=== PATIENT | female | born 1945 | race Caucasian/White ===

== ENCOUNTER 2019-02-10 16:30 | Inpatient (IN) | payer OTHER | END 2019-02-14 13:57 | disposition home or self-care (01) | LOC: JER 16:30 → J4W 02-11 20:15 → JERBED 20:29 ==

== ENCOUNTER 2019-02-22 00:21 | Inpatient (IN) | payer OTHER | END 2019-02-24 13:43 | disposition home or self-care (01) | LOC: JER 00:21 → JERBED 02:20 → J7W 17:01 ==

== ENCOUNTER 2019-04-19 09:05 | Day surgery (SDC) | payer OTHER ==
[2019-04-16 14:47] VITALS: BMI 33.0
[2019-04-19 09:47] VITALS: TEMP 97.8
[2019-04-19 14:44] VITALS: BP 124/84; PULSE 101
--- NOTE | 2019-04-21 20:11 | PATH ---
Surgical Pathology Report Patient Name: MICHAEL MORSE [facility]. Rec. #: [id number] /Age/Gender: 1945 (Age: 73) / F Account: [id number] Location: [facility]OS[facility] Taken: 04/19/2019 Received: 04/19/2019 Reported: 04/21/2019 Physicians: Sangita Page M.D. Specimen(s) Received A: DUODENUM POLYP B: SECOND PORTION OF DUODENUM AND DUODENAL BULB C: ANTRUM D: POLYP SIGMOID Clinical History Abnormal CT scan of duodenum, rule out duodenal neoplasm, colon cancer screening Postoperative diagnosis: Duodenal polyp, hiatal hernia, sigmoid polyp Final Diagnosis A. 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 FEATURES DIAGNOSTIC OF LIPOMA ARE NOT IDENTIFIED, SEE COMMENT. B. DUODENUM, SECOND PORTION AND DUODENAL BULB, BIOPSY: DUODENAL MUCOSA WITH MILD ACUTE AND CHRONIC DUODENITIS. C. STOMACH, ANTRUM, BIOPSY: GASTRIC ANTRAL MUCOSA WITH SEVERE CHRONIC ACTIVE GASTRITIS. IMMUNOHISTOCHEMICAL STAIN FOR H. PYLORI IS POSITIVE (MANY). D. SIGMOID COLON, POLYP, BIOPSY: TUBULAR ADENOMA. Comment: Suggest clinical and endoscopic correlation. Electronically Signed Veronica Frey M.D. Gross Description A. Received in formalin, labeled "biopsy polyp duodenum" is a mabry, irregular portion of soft tissue measuring 0.4 cm. in greatest dimension. The specimen is submitted in toto in one cassette. B. Received in formalin, labeled "biopsy second portion of duodenum and duodenal bulb" are 4 mabry, irregular portions of soft tissue ranging from 0.1-0.5 cm. in greatest dimension. The specimens are submitted in toto in one cassette. C. Received in formalin, labeled "biopsy antrum" are 2 mabry, irregular portions of soft tissue measuring 0.3 and 0.5 cm. in greatest dimension. The specimens are submitted in toto in one cassette. D. Received in formalin, labeled "sigmoid polyp" is a mabry, irregular portion of soft tissue measuring 0.4 cm. in greatest dimension. The specimen is submitted in toto in one cassette. 04/19/2019 saudi04/19/2019
== END 2019-04-19 11:50 | disposition home or self-care (01) ==
LOC: JASU-ENDO 09:05
PROVIDERS: ATTEND Internal Medicine Gastroenterology
PROC: 0DB98ZX Excision of Duodenum, Via Natural or Artificial Opening Endoscopic, Diagnostic (ICD-10-PCS; 2019-04-19)
PROC: 0DB68ZX Excision of Stomach, Via Natural or Artificial Opening Endoscopic, Diagnostic (ICD-10-PCS; 2019-04-19)
PROC: 0DBN8ZX Excision of Sigmoid Colon, Via Natural or Artificial Opening Endoscopic, Diagnostic (ICD-10-PCS; principal; 2019-04-19 09:45)
DX: Z12.11 Encounter for screening for malignant neoplasm of colon (principal); D12.5 Benign neoplasm of sigmoid colon; K57.30 Diverticulosis of large intestine without perforation or abscess without bleeding; K64.8 Other hemorrhoids; K31.7 Polyp of stomach and duodenum; K44.9 Diaphragmatic hernia without obstruction or gangrene
CPT/HCPCS: 88305-TC; 88342-TC

== ENCOUNTER 2021-07-26 13:11 | Emergency (ER) | payer OTHER ==
[2021-07-26] MEDS ORDERED: ADENOSINE 6 MG/2 ML VIAL IVPUSH ONE (13:27)
[2021-07-26] MEDS ORDERED: SODIUM CHLORIDE 0.9% 500 ML INFUS.BAG IV ONE (13:28)
[2021-07-26 13:35] VITALS: BMI 32.0
[2021-07-26 13:47] LABS: BASO % 2.5 % (0-2.0); EOS % 1.3 % (0-4.5); HEMATOCRIT 39.8 % (32.4-45.2); HEMOGLOBIN 13.7 GM/dL (10.7-15.3); LYMPH % 22.2 % (8-40); MCH 33.2 pg (25.7-33.7); MCHC 34.4 g/dl (32.0-36.0); MEAN CELL VOLUME 96.5 fl (80-96); MEAN PLT VOLUME 7.1 fl (7.5-11.1); MONO % 9.9 % (3.8-10.2); NEUT % 64.1 % (42.8-82.8); PLATELET COUNT 208 10^3/uL (134-434); RBC 4.12 M/mm3 (3.60-5.2); WHITE BLOOD COUNT 4.7 K/mm3 (4.0-10.0)
[2021-07-26 13:54] LABS: PROTHROMBIN TIME (PATIENT) 53.7 SEC (9.7-13.0)
[2021-07-26 13:57] LABS: ACTIVATED PTT 45.2 SECONDS (25.2-36.5)
[2021-07-26 14:03] LABS: INR 4.72 (0.83-1.09)
[2021-07-26 14:10] LABS: CHLORIDE 107 mmol/L (98-107); SODIUM 140 mmol/L (136-145)
[2021-07-26 14:11] LABS: CALCIUM 9.3 mg/dL (8.5-10.1)
[2021-07-26 14:13] LABS: ANION GAP 6 MMOL/L (8-16); BLOOD UREA NITROGEN 24.1 mg/dL (7-18); CO2 27 mmol/L (21-32); GLUCOSE,RANDOM 105 mg/dL (74-106)
[2021-07-26 14:14] LABS: MAGNESIUM 2.2 mg/dL (1.8-2.4)
[2021-07-26 14:15] LABS: CREATININE 1.5 mg/dL (0.55-1.3); SGOT/AST 30 U/L (15-37); SGPT/ALT 30 U/L (13-61)
[2021-07-26 14:17] LABS: BILIRUBIN,TOTAL 0.5 mg/dL (0.2-1); TOT PROT 7.3 g/dl (6.4-8.2)
[2021-07-26 14:19] LABS: ALK PHOS 119 U/L (45-117)
[2021-07-26] MEDS ORDERED: METOPROLOL TARTRATE 5 MG/5 ML VIAL IVPUSH ONE (14:26)
[2021-07-26] MEDS ORDERED: metoPROLOL SUCCINATE 25 MG TAB.SR.24H (FP) PO ONE (14:26)
[2021-07-26] MEDS ORDERED: metoPROLOL SUCCINATE 25 MG TAB.SR.24H (FP) ONE (14:31)
[2021-07-27 04:45] VITALS: BP 114/57; PULSE 64
[2021-07-27 04:47] VITALS: TEMP 97.6
== END 2021-07-27 04:53 | disposition short-term general hospital (02) ==
LOC: JER 13:11
PROC: 3E033GC Introduction of Other Therapeutic Substance into Peripheral Vein, Percutaneous Approach (ICD-10-PCS; principal; 2021-07-26)
DX: I48.0 Paroxysmal atrial fibrillation (principal); I45.10 Unspecified right bundle-branch block
CPT/HCPCS: 36415; 80053; 82550; 83735; 84443; 84484; 85025; 85610; 85730; 86850; 86900; 86901; 93005; 93010; 99291; C9803; U0003; U0005

== ENCOUNTER 2024-04-27 04:29 | Day surgery (SDC) | payer OTHER ==
[2024-04-22 14:04] VITALS: BMI 33.7
[2024-04-27] MEDS ORDERED: CEFAZOLIN SODIUM 2 GM VIAL ONE ×2 (08:35→08:41)
[2024-04-27 09:22] VITALS: TEMP 97.3
[2024-04-27 09:48] VITALS: PULSE 60
[2024-04-27 15:12] VITALS: BP 151/70; RESP 15
== END 2024-04-27 10:20 | disposition home or self-care (01) ==
LOC: JASU-ENDO 04:29
PROVIDERS: ATTEND Internal Medicine Gastroenterology
PROC: 0DJD8ZZ Inspection of Lower Intestinal Tract, Via Natural or Artificial Opening Endoscopic (ICD-10-PCS; 2024-04-27)
PROC: 0DJ08ZZ Inspection of Upper Intestinal Tract, Via Natural or Artificial Opening Endoscopic (ICD-10-PCS; principal; 2024-04-27 09:00)
DX: Z12.11 Encounter for screening for malignant neoplasm of colon (principal); K57.30 Diverticulosis of large intestine without perforation or abscess without bleeding; K64.8 Other hemorrhoids; K92.1 Melena; K44.9 Diaphragmatic hernia without obstruction or gangrene; Z86.010 Personal history of colon polyps
CPT/HCPCS: 43235; G0105